=== PATIENT | female | born 2000 | race Two or more races ===

== ENCOUNTER 2025-03-20 14:07 | Outpatient (CLI) | payer OTHER | END 2025-03-20 14:09 | disposition home or self-care (01) | LOC: SONOGRAMA 14:07 | DX: S66.323A Laceration of extensor muscle, fascia and tendon of left middle finger at wrist and hand level, initial encounter (principal) ==

== ENCOUNTER 2025-06-29 12:13 | Emergency (ER) | payer OTHER ==
[~2025-06-29] VITALS: Ht 157.5 cm; Wt 119.7 kg
[2025-06-29] MEDS ORDERED: SYNTHROID50 MCG PO (12:24)
[2025-06-29] MEDS ORDERED: ACETAMINOPHEN 500 MG GEL..CAP PO ONE ×2 (12:45→12:51)
[2025-06-29] MEDS ORDERED: IPRATROPIUM BROMIDE 0.5 MG/2.5 ML AMPUL.NEB IH SCH (12:45)
[2025-06-29] MEDS ORDERED: LEVALBUTEROL HCL 1.25 MG/3 ML SOLUTION IH SCH (12:45)
[2025-06-29] MEDS ORDERED: METHYLPREDNISOLONE SOD SUCC 125 MG VIAL IV ONE (12:45)
[2025-06-29] MEDS ORDERED: METHYLPREDNISOLONE SOD SUCC 125 MG VIAL ONE (12:51)
[2025-06-29] MEDS ORDERED: AZITHROMYCIN 500 MG TABLET PO ONE ×2 (12:51→13:00)
[2025-06-29] MEDS ORDERED: 0.9 % SODIUM CHLORIDE 1,000 ML IV ONE (14:30)
[2025-06-29 14:56] LABS: BASO % 0.2 % (0.1-1.2); EOS # 0.39 (0.04-0.54); EOS % 3.4 % (0.7-7.0); LYMPH # 0.46 (1.18-3.74); LYMPH % 4.1 % (19.3-53.1); MEAN PLATELET VOLUME 9.50 fl (9.4-12.4); MONO # 0.56 (0.24-0.82); MONO % 4.9 % (4.7-12.5); NEUT # 9.82 (1.56-6.13); NEUT % 86.8 % (34.0-71.1); RED CELL DISTRIBUTION WIDTH 15.4 % (11.6-14.4)
[2025-06-29 15:21] LABS: COVID-19 AG NEGATIVE (NEGATIVE)
[2025-06-29] MEDS ORDERED: 0.9 % SODIUM CHLORIDE 1,000 ML IV SCH (15:45)
[2025-06-29] MEDS ORDERED: OSELTAMIVIR PHOSPHATE 75 MG CAPSULE PO ONE ×2 (16:00→16:46)
[2025-06-29 16:29] LABS: INR 1.08
[2025-06-29 16:34] LABS: ALT/SGPT 61.0 U/L (12-78); AST/SGOT 36.0 U/L (15-37); BILIRUBIN TOTAL 0.22 mg/dL (0.3-1.2); BUN CREA RATIO 8.0 (7.0-25.0); CREATININE SERUM 0.62 mg/dL (0.55-1.02); GFR 119.28; GLOBULINA 5.0 G/DL (2.4-3.5); GLUCOSE FASTING 128.0 mg/dL (65-100); OSMOLALITY SERUM 278.0 MOSM/KG (275-295)
[2025-06-29] MEDS ORDERED: IPRATROPIUM BROMIDE 0.5 MG/2.5 ML AMPUL.NEB IH ONE (17:07)
[2025-06-29] MEDS ORDERED: LEVALBUTEROL HCL 1.25 MG/3 ML SOLUTION IH ONE (17:07)
[2025-06-29 17:44] LABS: URINE APPEARANCE Clear; URINE BILIRRUBIN Negative (NEGATIVE); URINE BLOOD Small; URINE COLOR Yellow; URINE GLUCOSE Negative (NEGATIVE); URINE KETONE Trace (NEGATIVE); URINE LEUKOCYTE Negative; URINE NITRATE Negative; URINE PROTEIN Negative (NEGATIVE); URINE UROBILINOGEN 0.2 E.U./dl
[2025-06-29 17:48] LABS: URINE BACTERIA 87.9 uL (0.0-1933); URINE EPITHELIAL CELLS 8.7 uL (0.0-38.8); URINE RBC 5.9 uL (0.0-20.8); URINE WBC 2.1 uL (0.0-23.2)
[2025-06-29 17:57] LABS: URINE CAST 0.00 uL (0.0-1.40)
[2025-06-29] MEDS ORDERED: PEPCID AC20 MG PO (19:19)
[2025-06-29] MEDS ORDERED: OSEL75CA PO (19:19)
[2025-06-29] MEDS ORDERED: TRAMADOL HCL 50 MG TABLET PO ONE (19:30)
== END 2025-06-29 20:37 | disposition home or self-care (01) ==
LOC: ER 12:14
PROVIDERS: General Practice
DX: J10.1 Influenza due to other identified influenza virus with other respiratory manifestations (principal); R50.9 Fever, unspecified; R05.8 Other specified cough; R06.02 Shortness of breath; R10.13 Epigastric pain; I10 Essential (primary) hypertension; E05.80 Other thyrotoxicosis without thyrotoxic crisis or storm; E11.9 Type 2 diabetes mellitus without complications; Z88.0 Allergy status to penicillin; Z88.6 Allergy status to analgesic agent; Z88.8 Allergy status to other drugs, medicaments and biological substances; Z20.822 Contact with and (suspected) exposure to COVID-19
CPT/HCPCS: 36415; 71250; 74177; 93005; 94640; Q9965